=== PATIENT | male | born 1935 | race Caucasian/White ===

== ENCOUNTER 2019-12-27 11:15 | Emergency (ER) | payer OTHER, SELFPAY ==
--- NOTE | ~2019-12-27 | US_ITS ---
EXAMINATION: US venous doppler LE RT DATE: 12/27/2019 12:14 INDICATION: Right lower limb pain TECHNIQUE: Parish scale images without and with compression and Doppler images of the right lower extre mity veins were obtained. COMPARISON: 12/02/2015 FINDINGS: There is thrombus in the right femoral, popliteal, and peroneal veins. The right common fem oral vein, profunda femoral vein, femoral posterior tibial veins, and greater saphenous vein are pat ent. IMPRESSION: 1. Thrombosis of the right femoral, popliteal, and peroneal veins. These findings were discussed with NURIA Radford in the Emergency Department at 1225 hours on 12/27/2019. Reviewed, dictated and finalized at location A. IMPRESSION: 1. Thrombosis of the right femoral, popliteal, and peroneal veins. These findin gs were discussed with NURIA Radford in the Emergency Department at 1225 ho urs on 12/27/2019.
[2019-12-27 11:26] VITALS: BP 162/68; PULSE 89; RESP 18; TEMP 36.5; O2SAT 97
--- NOTE | 2019-12-27 12:51 | ED.GENADULT ---
HPI - General Adult General Chief complaint: Extremity Injury, Lower <NUPUR Austin Last Filed: 12/27/19 12:56> Stated complaint: right leg pain, difficulty walking <NUPUR Austin Last Filed: 12/27/19 12:56> Time Seen by Provider: 12/27/19 11:54 <NUPUR Austin Last Filed: 12/27/19 12:56> Source: patient <NUPUR Austin Last Filed: 12/27/19 12:56> Mode of arrival: ambulatory <NUPUR Austin Last Filed: 12/27/19 12:56> Limitations: no limitations <NUPUR Austin Last Filed: 12/27/19 12:56> History of Present Illness HPI narrative: Patient is a 84-year-old male who presents for evaluation of right thigh pain for the last couple of days patient notes aching pain worse with activity and movement notes 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 patient denies chest pain dyspnea or other complaints and on arrival is in the room in no distress patient has not been seen for this complaint patient has not taken anything for his symptoms pain is worse with weightbearing and activity <NUPUR Austin Last Filed: 12/27/19 12:56> Related Data Home medications: Home Medications Medication Instructions Recorded Confirmed aspirin DAILY 12/27/19 lisinopril DAILY 12/27/19 mirabegron [Myrbetriq] mg PO DAILY 12/27/19 <NUPUR Austin Last Filed: 12/27/19 12:56> Allergies/adverse reactions: Allergies Allergy/AdvReac Type Severity Reaction Status Date / Time peanut Allergy Unknown Nausea and Verified 12/27/19 12:47 Vomiting tree nut Allergy Unknown Nausea and Verified 12/27/19 12:47 Vomiting tetanus toxoid, adsorbed AdvReac Unknown Swelling Verified 12/27/19 12:47 <NUPUR Austin Last Filed: 12/27/19 12:56> Review of Systems Review of Systems: All systems reviewed & are unremarkable except as noted in HPI and below <NUPUR Austin Last Filed: 12/27/19 12:56> PMF Past Medical History Medical History: Medical History (Updated 12/27/19 @ 12:56 by Doug Sue PA-C) DVT (deep venous thrombosis) <Doug Sue PA-C - Last Filed: 12/27/19 12:56> Social History Social History: Social History (Updated 12/27/19 @ 12:54 by Doug Sue PA-C) Smoking status: Never smoker Gender identity (if verbalized by the patient): Male <Doug Sue PA-C - Last Filed: 12/27/19 12:56> Exam Narrative: Exam Narrative: GENERAL: Well-appearing, well-nourished, and in no acute distress. HEAD: Normocephalic, atraumatic. EYES: PERRLA and EOMI. ENT: Nares clear, no rhinorrhea or epistaxis. Mucous membranes moist. CHEST: Clear to auscultation. No respiratory distress. No wheezes rales or rhonchi HEART: Regular rate and rhythm. No murmur heard. Normal peripheral pulses. EXTREMITIES: Normal range of motion. No edema. Tenderness of the right thigh no deformity noted SKIN: Warm, dry, no rash. NEURO: No focal deficits. Alert and oriented x3. Neurovascularly intact. Capillary refill less than 2 seconds PSYCH: Normal mood and affect. <Doug Sue PA-C - Last Filed: 12/27/19 12:56> Course Course Emergency Course: Patient in the room at this time in no distress aware of case findings treatment plan and diagnosis <Doug Seu PA-C - Last Filed: 12/27/19 12:56> Vital Signs Vital signs: Vital Signs Temperature 97.7 F 12/27/19 11:26 Pulse Rate 89 12/27/19 11:26 Respiratory Rate 18 12/27/19 11:26 Blood Pressure 162/68 H 12/27/19 11:26 Pulse Oximetry 97 12/27/19 11:26 Temperature 97.7 F 12/27/19 11:26 Pulse Rate 88 12/27/19 13:25 Respiratory Rate 18 12/27/19 13:25 Blood Pressure 156/84 H 12/27/19 13:25 Pulse Oximetry 100 12/27/19 13:25 <Doug Sue PA-C - Last Filed: 12/27/19 12:56> Vital Signs Temperature 97.7 F 12/27/19 11:26 Pulse Rate 89 12/27/19 11:26 Respiratory Rate
[2019-12-27 12:58] LABS: Basophils Percent Auto 0.4 % (0.2-1.2); Eosinophils Absolute Auto 0.2 K/mm3 (0-0.3); Eosinophils Percent Auto 2.6 % (0-4.4); Hematocrit 44.1 % (42.0-52.0); Hemoglobin 14.8 g/dL (14.0-18.0); Immature Granulocyte Absolute 0.02 K/mm3 (0.00-0.031); Immature Granulocyte Percent A 0.3 % (0-0.5); Lymphocytes Absolute Auto 1.43 K/mm3 (0.9-3.2); Lymphocytes Percent Auto 20.4 % (18.3-44.2); Mean Corpuscular HGB Conc 33.6 g/dl (32-36); Mean Corpuscular Hemoglobin 31.4 pg (26-34); Mean Corpuscular Volume 93.4 fl (80-100); Mean Platelet Volume 11.7 fl (7.4-10.4); Monocytes Absolute Auto 0.6 K/mm3 (0.1-0.6); Neutrophils Absolute Auto 4.7 K/mm3 (1.3-6.7); Neutrophils Percent Auto 67.3 % (45.5-73.1); Platelet Count Result 155 k/mm3 (150-375); Red Blood Count 4.72 M/mm3 (4.6-6.20); Red Cell Distribution Width 13.4 % (11.5-14.5)
[2019-12-27 13:04] LABS: Partial Thromboplastin Time 26.2 SECONDS (22.3-36.8)
[2019-12-27 13:10] LABS: Blood Urea Nitrogen 23 mg/dL (9-20); Calcium 9.4 mg/dL (8.4-10.2); Carbon Dioxide 26 mmol/L (22-30); Chloride 105 mmol/L (98-107); Estimated CRCL calculation 39 ml/min; Estimated Glomerular Filt Rate 58; Glucose 101 mg/dL (75-110); Sodium 137 mmol/L (137-145)
[2019-12-27] MEDS: APIXABAN 5 MG TABLET 10 MG PO (13:24)
[2019-12-27 13:25] VITALS: BP 156/84; PULSE 88; RESP 18; O2SAT 100
== END 2019-12-27 13:53 | disposition home or self-care (01) ==
PROVIDERS: Emergency Medicine Emergency Medical Services; Emergency Provider Emergency Medicine; PCP Student in an Organized Health Care Education/Training Program
DX: I82.411 Acute embolism and thrombosis of right femoral vein (principal); I82.431 Acute embolism and thrombosis of right popliteal vein; I82.451 Acute embolism and thrombosis of right peroneal vein; Z79.82 Long term (current) use of aspirin; Z86.718 Personal history of other venous thrombosis and embolism
CPT/HCPCS: 36415; 80048; 85025; 85610; 85730; 93971; 99284; A9270

== ENCOUNTER 2023-08-17 02:32 | Emergency (ER) | payer OTHER, SELFPAY ==
--- NOTE | ~2023-08-17 | CT_ITS ---
EXAMINATION: CTA chest PE protocol DATE: 08/17/2023 04:25 INDICATION: Pleuritic chest pain, nonproductive cough TECHNIQUE: Computed tomography angiography (CTA) of the chest was performed with 100 mL Omnipaque-350 intravenous contrast timed to evaluate the pulmonary arteries. Coronal maximum intensity projection 3D-reconstructions were created by the technologist. The dose-length product (DLP) was 691.32 mGy-cm. Automated exposure control and iterative reconstruction technique were employed. COMPARISON: None. FINDINGS: The pulmonary arteries are well-opacified. Respiratory motion limits the examination. No ce ntral pulmonary embolism is identified. There are airspace opacities in the left upper lobe. No pleur al effusion or pneumothorax. No pathologically enlarged thoracic lymph nodes are identified. The hear t size is normal. There is calcified coronary artery atherosclerosis. Punctate calcifications in othe rwise normal appearing liver and spleen likely represent healed granulomatous disease. Stones are pre sent in the nondistended gallbladder. Cysts of the left kidney measure up to 4.5 cm. There is mild th oracic spondylosis. IMPRESSION: 1. No central pulmonary embolus identified. Sensitivity limited by respiratory motion. 2. Airspace opacities of the left upper lobe, likely pneumonia. Recommend follow-up chest CT in three months as minimally invasive adenocarcinoma could have a similar appearance. 3. Cholelithiasis. Reviewed, dictated and finalized at location [facility]. [facility] IMPRESSION: 1. No central pulmonary embolus identified. Sensitivity limited by respiratory motion. 2. Airspace opacities of the left upper lobe, likely pneumonia. Recommend follo w-up chest CT in three months as minimally invasive adenocarcinoma could have a similar appearance. 3. Cholelithiasis.
[2023-08-17 02:39] VITALS: BP 161/97; PULSE 107; RESP 18; TEMP 36.8; O2SAT 94
[2023-08-17 02:46] VITALS: BP 164/82; PULSE 101; RESP 17; O2SAT 98; O2SAT 99
--- NOTE | 2023-08-17 02:47 | ECG_ITS ---
Measurements Intervals [place] Rate: 91 P: -24 NE: 207 QRS: 31 QRSD: 85 T: -14 QT: 348 QTc: 429 Interpretive Statements SINUS RHYTHM WITH FREQUENT SUPRAVENTRICULAR PREMATURE COMPLEXES Electronically Signed On 08-17-2023 12:32:53 [employer] by Royce Bloom M.D.
--- NOTE | 2023-08-17 03:00 | ED.SOB ---
HPI - SOB/Dyspnea General Chief Complaint: Shortness of Breath/Dyspnea Stated Complaint: sob Time Seen by Provider: 08/17/23 02:49 History of Present Illness HPI Narrative: Patient is an 88-year-old male with history of DVT on Eliquis, hypertension presenting with painful cough. Patient states that he has had a cough for the last couple of days and it hurts in his chest whenever he coughs. States that if he tries to talk too much he will have a coughing fit. States that the pain in his chest has been there for couple of days and has been getting worse. He does feel short of breath. complains of mild sore throat. Denies exertional chest pain. No fevers, abdominal pain, nausea vomiting, diarrhea, leg swelling. Related Data Home Medications Medication Instructions Recorded Confirmed aspirin 81 mg chewable tablet DAILY 12/27/19 lisinopril 20 mg tablet DAILY 12/27/19 mirabegron 25 mg tablet,extended mg PO DAILY 12/27/19 release 24 hr (Myrbetriq) Allergies Allergy/AdvReac Type Severity Reaction Status Date / Time peanut Allergy Unknown Nausea and Verified 12/27/19 12:47 Vomiting tree nut Allergy Unknown Nausea and Verified 12/27/19 12:47 Vomiting tetanus toxoid, adsorbed AdvReac Unknown Swelling Verified 12/27/19 12:47 Review of Systems Review of Systems: All systems reviewed & are unremarkable except as noted in HPI and below PMFSH Past Medical History Medical History DVT (deep venous thrombosis) Social History Social History Smoking status: Never smoker Gender identity (if verbalized by the patient): Male Exam Narrative: GENERAL: Well-appearing, in no acute distress HEAD: Normocephalic, atraumatic. EYES: PERRLA and EOMI. ENT: Mucous membranes moist. NECK: Supple. CHEST: Clear to auscultation. No respiratory distress. HEART: Tachycardic, regular rhythm ABDOMEN: Soft, nontender, nondistended EXTREMITIES: Normal range of motion. No edema. SKIN: Warm, dry, no rash. NEURO: No focal deficits. Alert and oriented x3. PSYCH: Normal mood and affect. Course Vital Signs Vital signs: Vital Signs Temperature 98.2 F 08/17/23 02:39 Pulse Rate 107 H 08/17/23 02:39 Respiratory Rate 18 08/17/23 02:39 Blood Pressure 161/97 H 08/17/23 02:39 Pulse Oximetry 94 08/17/23 02:39 Oxygen Delivery Room Air 08/17/23 02:39 Temperature 98.2 F 08/17/23 02:39 Pulse Rate 98 08/17/23 06:50 Respiratory Rate 16 08/17/23 06:50 Blood Pressure 165/95 H 08/17/23 06:50 Pulse Oximetry 99 08/17/23 06:50 Oxygen Delivery Room Air 08/17/23 03:07 MDM - SOB/Dyspnea MDM Narrative Medical decision making narrative: 88-year-old male presenting with cough, shortness of breath, pleuritic chest pain. Patient is slightly tachycardic on arrival, otherwise vitals are within normal limits. Exam remarkable for the above. EKG per my interpretation shows normal sinus rhythm with first-degree AV block, no ST elevations or depressions. Blood work is unremarkable. Troponin undetectable x2. CTA chest shows no pulmonary embolus. There is evidence of left-sided pneumonia. Will get the patient started on Augmentin and doxycycline. Patient is eager to go home which I think is reasonable. Advise close follow-up this PCP to ensure resolution of his pneumonia. Discussed that he may require a follow-up CT due to the abnormality seen today. He appropriate return precautions given. Patient is agreeable with this plan. Discharged in stable condition. Differential Diagnosis Differential diagnosis: Likely congestive heart failure, community acquired pneumonia and pulmonary embolism Medical Records Attestation: I reviewed the patient's medical records. Lab Data Attestation: I reviewed the patient's lab results. 08/17/23 02:57 08/17/23 02:57 Labs: La
[2023-08-17 03:01] VITALS: BP 170/96; PULSE 102; PULSE 99; RESP 16; O2SAT 95
[2023-08-17 03:04] LABS: Basophils Percent Auto 0.5 % (0.2-1.2); Eosinophils Absolute Auto 0.2 K/mm3 (0-0.3); Eosinophils Percent Auto 2.5 % (0-4.4); Hemoglobin 14.6 g/dL (14.0-18.0); Immature Granulocyte Absolute 0.02 K/mm3 (0.00-0.031); Immature Granulocyte Percent A 0.3 % (0-0.5); Lymphocytes Absolute Auto 1.37 K/mm3 (0.9-3.2); Lymphocytes Percent Auto 18.3 % (18.3-44.2); Mean Corpuscular HGB Conc 33.2 g/dl (32-36); Mean Corpuscular Hemoglobin 30.8 pg (26-34); Mean Corpuscular Volume 92.8 fl (80-100); Mean Platelet Volume 11.2 fl (7.4-10.4); Monocytes Absolute Auto 0.9 K/mm3 (0.1-0.6); Monocytes Percent Auto 11.4 % (2.6-8.5); Platelet Count Result 162 k/mm3 (150-375); Red Blood Count 4.74 M/mm3 (4.6-6.20); Red Cell Distribution Width 13.2 % (11.5-14.5); White Blood Count 7.5 K/mm3 (4.5-10.0)
[2023-08-17 03:07] VITALS: O2SAT 97
[2023-08-17 03:14] LABS: INR 1.2; Prothrombin Time 15.5 Seconds (11.1-14.7)
[2023-08-17 03:15] LABS: Partial Thromboplastin Time 32.7 SECONDS (22.3-36.8)
[2023-08-17] MEDS: SODIUM CHLORIDE 0.9% IV 1,000 ML 999 ML IV CONT (03:18)
[2023-08-17 03:34] LABS: Troponin I < 0.012 ng/mL (0.000-0.034)
[2023-08-17 03:40] LABS: Influenza A QL RT-PCR Negative (Negative); Influenza B QL RT-PCR Negative (Negative); RSV RNA, RT-PCR Negative (Negative); SARS-CoV-2 RNA PCR Negative (Negative)
[2023-08-17 04:04] LABS: Alanine Aminotransferase 26 U/L (6-50); Albumin Level 4.3 g/dL (3.5-5.1); Alkaline Phosphatase 61 U/L (38-126); Anion Gap 10 mmol/L (8-16); Aspartate Amino Transferase 32 U/L (17-59); Blood Urea Nitrogen 18 mg/dL (9-20); Calcium 9.6 mg/dL (8.4-10.2); Carbon Dioxide 24 mmol/L (22-30); Chloride 105 mmol/L (98-107); Estimated CRCL calculation 43 ml/min; Estimated Glomerular Filt Rate > 60; Glucose 166 mg/dL (65-110); Potassium 3.9 mmol/L (3.4-5.0); Sodium 139 mmol/L (137-145)
[2023-08-17 04:53] VITALS: BP 198/82; PULSE 99; RESP 20; O2SAT 98
--- NOTE | 2023-08-17 05:52 | ECG_ITS ---
Measurements Intervals [place] Rate: 83 P: 71 LA: 215 QRS: 7 QRSD: 84 T: 66 QT: 363 QTc: 427 Interpretive Statements SINUS RHYTHM WITH OCCASIONAL SUPRAVENTRICULAR PREMATURE COMPLEXES Electronically Signed On 08-17-2023 12:34:58 EMT B by Royce Bloom M.D.
[2023-08-17 06:31] LABS: Troponin I < 0.012 ng/mL (0.000-0.034)
[2023-08-17] MEDS: AZITHROMYCIN 250 MG TABLET 500 MG PO (06:32)
[2023-08-17] MEDS: AMOXICILLIN/CLAVULANATE K 875-125 MG TAB 1 TABLET PO (06:33)
[2023-08-17 06:50] VITALS: BP 165/95; PULSE 98; RESP 16; O2SAT 99
== END 2023-08-17 06:51 | disposition home or self-care (01) ==
PROVIDERS: Emergency Provider Emergency Medicine; PCP Student in an Organized Health Care Education/Training Program
DX: J18.9 Pneumonia, unspecified organism (principal); Z20.822 Contact with and (suspected) exposure to COVID-19; I10 Essential (primary) hypertension; Z86.718 Personal history of other venous thrombosis and embolism; Z79.01 Long term (current) use of anticoagulants; Z79.82 Long term (current) use of aspirin; K80.20 Calculus of gallbladder without cholecystitis without obstruction; I49.1 Atrial premature depolarization
CPT/HCPCS: 36415; 71275; 80053; 84484; 85025; 85610; 85730; 87637; 93005; 96360; 99284; A9270; J7030; Q9967

== ENCOUNTER 2024-03-11 20:59 | Emergency (ER) | payer OTHER, SELFPAY ==
[2024-03-11] VITALS (13 sets, daily range): BP systolic 125–165; BP diastolic 84–107; PULSE 68–90; RESP 16; TEMP 36.3–37; O2SAT 94–98
[2024-03-11 22:18] LABS: Bacteria Urine Rare /hpf; Need Manual Microscopic Reviewed; Non Pathogenic Casts 0-2; Squamous Epithelial Cell Urine None Seen /hpf (Few); WBC Urine >100 /hpf (0-3)
[2024-03-11 22:19] LABS: Add Urine Microscopic? YES; Appearance Urine Turbid (Clear); Bilirubin Urine 1+ (Negative); Blood Urine 1+ (Negative); Color Urine Orange (Yellow); Glucose Urine UA Negative (Negative); Ketones Urine Negative (Negative); Leukocyte Esterase Ur 3+ LEU/UL (Negative); Nitrate Urine Positive (Negative); Protein Urine 2+ mg/dL (Negative); Specific Grav Ur 1.016 (1.001-1.035)
--- NOTE | 2024-03-11 22:22 | ED.GENADULT ---
HPI - General Adult General Chief complaint: Urogenital-Male Stated complaint: hematuria Time Seen by Provider: 03/11/24 21:59 Source: patient Mode of arrival: ambulatory Limitations: no limitations History of Present Illness HPI narrative: This is a an 88-year-old male who presents to the ED for chief complaint of hematuria that started around 1900 this evening. Patient states that he was seen by his PCP this morning and prescribed Pyridium and Bactrim for possible UTI. States that for the last couple of weeks he has had increased pain and burning with urination. States the pain is most significant when initiating the stream. Pain is limited to the distal urethra. Denies abdominal pain, fevers, chills, flank pain, nausea, vomiting, syncope, lightheadedness, diarrhea. Denies any other recent illness. Related Data Home Medications Medication Instructions Recorded Confirmed aspirin 81 mg chewable tablet DAILY 12/27/19 lisinopril 20 mg tablet DAILY 12/27/19 mirabegron 25 mg tablet,extended mg PO DAILY 12/27/19 release 24 hr (Myrbetriq) Allergies Allergy/AdvReac Type Severity Reaction Status Date / Time peanut Allergy Unknown Nausea and Verified 03/11/24 21:08 Vomiting tree nut Allergy Unknown Nausea and Verified 03/11/24 21:08 Vomiting tetanus toxoid, adsorbed AdvReac Unknown Swelling Verified 03/11/24 21:08 Review of Systems Review of Systems: All systems as dictated in [facility] Past Medical History Medical History DVT (deep venous thrombosis) Social History Social History Smoking status: Never smoker Gender identity (if verbalized by the patient): Male Exam Narrative: GENERAL: Well-appearing, well-nourished, and in no acute distress. HEAD: Normocephalic, atraumatic. EYES: PERRLA and EOMI. ENT: Nares clear, no rhinorrhea or epistaxis. Mucous membranes moist. Oropharynx without tonsillar hypertrophy exudate or other lesions. NECK: Supple. No adenopathy or masses. CHEST: No respiratory distress. Clear to auscultation. No wheezes rales or rhonchi HEART: Regular rate and rhythm. No murmur heard. Normal peripheral pulses. ABDOMEN: Soft, nontender, nondistended, normal active bowel sounds. Negative flank tenderness bilaterally. MSK: Normal range of motion. No edema. SKIN: Warm, dry, no rash. NEURO: Alert and oriented x4. No focal deficits. PSYCH: Normal mood and affect. Course Vital Signs Vital signs: Vital Signs Temperature 97.3 F L 03/11/24 21:03 Pulse Rate 90 03/11/24 21:03 Respiratory Rate 16 03/11/24 21:03 Blood Pressure 163/84 H 03/11/24 21:03 Pulse Oximetry 98 03/11/24 21:03 Oxygen Delivery Room Air 03/11/24 21:03 Temperature 98.6 F 03/11/24 23:54 Pulse Rate 68 03/11/24 23:54 Respiratory Rate 16 03/11/24 23:54 Blood Pressure 125/86 03/11/24 23:54 Pulse Oximetry 96 03/11/24 23:54 Oxygen Delivery Room Air 03/11/24 21:03 Medical Decision Making MDM Narrative Medical decision making narrative: This is a an 88-year-old male who presents to the ED for chief complaint of dysuria and hematuria. Vitals are normal. Exam is benign. No flank pain or fevers. Patient was started recently on Bactrim by PCP for possible UTI. CBC is unremarkable. CMP shows slightly elevated creatinine and BUN of 1.40 and 32 respectively. Suspect these increases or due to recent starting of Bactrim. Urinalysis today shows nitrite positive urine with 3+ leuks, greater than 100 whites. Presentation is consistent with UTI but no concern for pyelonephritis or ureterolithiasis today. Patient was given ciprofloxacin here in the ED. Advised him to switch over to Cipro rather than taking the Bactrim as it can be harmful in his kidneys. Pt will be discharged in stable condition. Return precautions given and supportive measur
[2024-03-11 22:54] LABS: Basophils Percent Auto 0.5 % (0.2-1.2); Eosinophils Absolute Auto 0.2 K/mm3 (0-0.3); Eosinophils Percent Auto 1.9 % (0-4.4); Hemoglobin 14.5 g/dL (14.0-18.0); Immature Granulocyte Absolute 0.02 K/mm3 (0.00-0.031); Immature Granulocyte Percent A 0.2 % (0-0.5); Lymphocytes Absolute Auto 1.97 K/mm3 (0.9-3.2); Lymphocytes Percent Auto 23.2 % (18.3-44.2); Mean Corpuscular HGB Conc 34.5 g/dl (32-36); Mean Corpuscular Hemoglobin 32.4 pg (26-34); Mean Corpuscular Volume 93.8 fl (80-100); Mean Platelet Volume 12.1 fl (7.4-10.4); Monocytes Absolute Auto 0.8 K/mm3 (0.1-0.6); Monocytes Percent Auto 8.8 % (2.6-8.5); Neutrophils Absolute Auto 5.5 K/mm3 (1.3-6.7); Neutrophils Percent Auto 65.4 % (45.5-73.1); Platelet Count Result 169 k/mm3 (150-375); Red Blood Count 4.48 M/mm3 (4.6-6.20); Red Cell Distribution Width 13.6 % (11.5-14.5); White Blood Count 8.5 K/mm3 (4.5-10.0)
[2024-03-11 23:13] LABS: Alanine Aminotransferase 32 U/L (6-50); Albumin Level 4.8 g/dL (3.5-5.1); Alkaline Phosphatase 50 U/L (38-126); Anion Gap 13 mmol/L (4-12); Aspartate Amino Transferase 37 U/L (17-59); Bilirubin,Total 0.8 mg/dL (0.2-1.3); Blood Urea Nitrogen 32 mg/dL (9-20); Calcium 9.6 mg/dL (8.4-10.2); Carbon Dioxide 23 mmol/L (22-30); Chloride 101 mmol/L (98-107); Estimated CRCL calculation 34 ml/min; Estimated Glomerular Filt Rate 48; Glucose 132 mg/dL (65-110); Potassium 4.2 mmol/L (3.4-5.0); Sodium 137 mmol/L (137-145)
[2024-03-11] MEDS: CIPROFLOXACIN 500 MG TAB PO (23:28)
== END 2024-03-11 23:56 | disposition home or self-care (01) ==
PROVIDERS: Emergency Medicine; Emergency Provider Physician Assistant; PCP Student in an Organized Health Care Education/Training Program
DX: N39.0 Urinary tract infection, site not specified (principal); Z86.718 Personal history of other venous thrombosis and embolism
CPT/HCPCS: 36415; 80053; 81001; 85025; 87077; 87086; 87088; 99283; A9270

== ENCOUNTER 2024-05-08 12:51 | Emergency (ER) | payer OTHER, SELFPAY ==
--- NOTE | ~2024-05-08 | XR_ITS ---
EXAMINATION: XR lumbar spine 2-3V DATE: 05/08/2024 14:29 INDICATION: Right-sided low back pain. TECHNIQUE: 3 views of lumbar spine were obtained. COMPARISON: Chest CT 09/15/2023 FINDINGS: There is 8 degrees dextrocurvature of lumbar spine. Vertebral body heights are normal. Ther e is mildly decreased disc height at L1-L2, moderately decreased disc height at L2-L3, and mildly dec reased disc height at L4-L5. There is multilevel facet joint osteoarthritis, severe in lower lumbar s pine. There are gallstones in the gallbladder. 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 There i s a rim calcified cyst in left kidney. IMPRESSION: 1. Moderate lumbar spondylosis. 2. Cholelithiasis. Reviewed, dictated and finalized at location A.
[2024-05-08 12:57] VITALS: BP 158/81; PULSE 90; RESP 16; TEMP 36.6; O2SAT 99
[2024-05-08] MEDS: ACETAMINOPHEN 325 MG TABLET 650 MG PO (14:42)
[2024-05-08 15:09] VITALS: BP 164/87; PULSE 84; RESP 16; TEMP 36.7; O2SAT 96
--- NOTE | 2024-05-08 16:47 | ED_ITS ---
HPI - Back Pain/Injury General Chief Complaint: Back Pain/Injury Stated Complaint: R. lower back pain radiates down leg Time Seen by Provider: 05/08/24 13:49 History of Present Illness HPI Narrative: Patient is a 8-year-old male who presents ER with right-sided back pain. Woke up with this today. Denies trauma or injury. No radiation down leg. No saddle anesthesia or difficulty with urination/defecation. Walks with a walker. He is anticoagulated. Related Data Home Medications Medication Instructions Recorded Confirmed aspirin 81 mg chewable tablet DAILY 12/27/19 lisinopril 20 mg tablet DAILY 12/27/19 mirabegron 25 mg tablet,extended mg PO DAILY 12/27/19 release 24 hr (Myrbetriq) Allergies Allergy/AdvReac Type Severity Reaction Status Date / Time peanut Allergy Unknown Nausea and Verified 05/08/24 12:54 Vomiting tree nut Allergy Unknown Nausea and Verified 05/08/24 12:54 Vomiting tetanus toxoid, adsorbed AdvReac Unknown Swelling Verified 05/08/24 12:54 Review of Systems Constitutional: Constitutional: Reports no additional constitutional c omplaints Cardiovascular: Cardiovascular: Reports no additional cardiovascular complaints Respiratory: Respiratory: Reports no additional respiratory complaints Musculoskeletal: Musculoskeletal: Reports back pain, Denies arthralgias, Lukas es joint swelling and Denies muscle cramps PMFSH Past Medical History Medical History DVT (deep venous thrombosis) Social History Social History Smoking status: Never smoker Gender identity (if verbalized by the patient): Male Exam Narrative: GENERAL: Well-appearing, well-nourished, and in no acute distress. HEAD: Normocephalic, atraumatic. ENT: Mucous membranes moist. NCHEST: Clear to auscultation. No respiratory distress. HEART: Regular rate and rhythm. Normal peripheral pulses. Back: No midline tenderness at T/L-spine. There is tenderness in the right paraspinal musculature around L3/L4. EXTREMITIES: Normal range of motion. No edema. SKIN: Warm, dry, no rash. NEURO: Alert and oriented x3. PSYCH: Normal mood and affect. Course Course Emergency Course: Pain improved with Tylenol. Discharged with Tylenol and tizanidine. Discussed imaging. Vital Signs Vital signs: Vital Signs Temperature 97.9 F 05/08/24 12:57 Pulse Rate 90 05/08/24 12:57 Respiratory Rate 16 05/08/24 12:57 Blood Pressure 158/81 H 05/08/24 12:57 Pulse Oximetry 99 05/08/24 12:57 Oxygen Delivery Room Air 05/08/24 12:57 Temperature 98.0 F 05/08/24 15:09 Pulse Rate 95 05/08/24 17:05 Respiratory Rate 15 05/08/24 17:05 Blood Pressure 116/72 05/08/24 17:05 Pulse Oximetry 98 05/08/24 17:05 Oxygen Delivery Room Air 05/08/24 12:57 MDM - Back Pain/Injury Imaging Data Radiologist's impression: ITS Impressions Lumbar Spine X-Ray 05/08/24 14:38 IMPRESSION: 1. Moderate lumbar spondylosis. 2. Cholelithiasis. Discharge Plan Discharge Clinical Impression: Strain of lumbar region Patient Disposition: Home, Self-Care Condition: Stable Instructions: Acute Low Back Pain (ED) Additional Instructions: Please return to the emergency department if you develop severe pain that is not controlled by pain medications or if you are unable to walk because of pain or weakness. Return to the emergency department immediately if you develop fevers, loss of bowel or bladder control (dribbling of urine or having accidents you wouldn't normally have), inability to urinate, numbness of your genital or anal area, or weakness/numbness of your legs or arms as these could all be signs of a serious medical emergency. Prescriptions: New acetaminophen 500 mg capsule 500 mg PO QID PRN (Reason: pain) Qty: 20 0RF tizanidine 2 mg capsule 2 mg PO Q8H PRN (Reason: muscle spasticity) Qty: 14 0RF No Action lisinopril 20 mg tablet DAILY aspirin 81 mg Tablet,Chewable DAILY Myrbetriq 25 mg tablet extended release 24 hr PO DAILY Eliquis DVT-PE Treat 30D Start 5 mg (74 tabs) tablets,dose pack See Rx Instructions .ROUTE .COMPLEX Qty: 74 0RF Rx Instructions: orally per package directions amoxicillin-pot clavulanate 875-125 mg tablet 1 tablet PO Q12H Qty: 14 0RF azithromycin 250 mg tablet See Rx Instructions PO .COMPLEX Qty: 6 0RF Rx Instructions: For 250 mg dose pack: take 500 mg today (day 1), then 250 mg for 4 days (days 2-5) ciprofloxacin HCl [Cipro] 500 mg tablet 500 mg PO Q12H Qty: 14 0RF Follow-up/Referrals: Lily,DO Aki [Primary Care Provider] - 1 Week
[2024-05-08 17:05] VITALS: BP 116/72; PULSE 95; RESP 15; O2SAT 98
== END 2024-05-08 17:05 | disposition home or self-care (01) ==
PROVIDERS: Emergency Provider Emergency Medicine; PCP Student in an Organized Health Care Education/Training Program
DX: S39.012A Strain of muscle, fascia and tendon of lower back, initial encounter (principal); Z86.718 Personal history of other venous thrombosis and embolism; K80.20 Calculus of gallbladder without cholecystitis without obstruction; Z79.82 Long term (current) use of aspirin; Z79.01 Long term (current) use of anticoagulants; Z79.899 Other long term (current) drug therapy; X58.XXXA Exposure to other specified factors, initial encounter
CPT/HCPCS: 72100; 99283; A9270